=== PATIENT | male | born 1985 | race Caucasian/White ===

== ENCOUNTER 2023-04-08 11:55 | Emergency (ER) | payer OTHER, SELFPAY ==
[2023-04-08 11:57] VITALS: BP 144/94; PULSE 61; RESP 18; TEMP 36.8; O2SAT 96; BMI 39.5
--- NOTE | 2023-04-08 12:33 | ED.UPPEXIN1 ---
HPI - Extremity Injury (Upper) General Chief Complaint: Extremity Injury, Upper Stated Complaint: POSSIBLE TEAR IN L BICEP Time Seen by Provider: 04/08/23 12:06 Source: patient Mode of arrival: walk-in Limitations: no limitations History of Present Illness HPI narrative: patient tried to catch a 1200lb toolbox as it fell and injured the left biceps. He was concerned about possible biceps tear. He has pain along the distal left biceps near the insertion at the radius along the biceps tendon. Related Data Home Medications Medication Instructions Recorded Confirmed amlodipine 5 mg tablet 5 mg PO DAILY 04/08/23 04/08/23 Allergies Allergy/AdvReac Type Severity Reaction Status Date / Time terbinafine [From Lamisil] Allergy Intermediate Verified 04/08/23 12:01 Exam Narrative Exam Narrative: Nurses notes and vital signs reviewed and patient is not hypoxic. General: Well-appearing and in no apparent distress. Skin: Warm, dry, no pallor noted. No rash. Cardiovascular: normal peripheral perfusion Respiratory: No accessory muscle use or respiratory distress. Musculoskeletal: tenderness along the distal/insertional left biceps tendon and along the distal biceps muscles. Left shoulder, elbow and forearm/wrist with normal ROM, no upper extremity edema/swelling and no deformity suggest complete tendon rupture. Distal Left UE exam is normal. Neurological: A&O x4. No cranial nerve dysfunction observed. No truncal ataxia. Moves all extremities. Sensation intact. Psychiatric: Cooperative and interactive. Normal mood and affect. Constitutional Vital Signs, click to edit/add: Last Vital Signs Temp 98.2 F 04/08/23 11:57 Pulse 61 04/08/23 11:57 Resp 18 04/08/23 11:57 BP 144/94 H 04/08/23 11:57 Pulse Ox 96 04/08/23 11:57 O2 Del Method Room Air 04/08/23 11:57 Course Vital Signs Vital signs: Vital Signs Temperature 98.2 F 04/08/23 11:57 Pulse Rate 61 04/08/23 11:57 Respiratory Rate 18 04/08/23 11:57 Blood Pressure 144/94 H 04/08/23 11:57 Pulse Oximetry 96 04/08/23 11:57 Oxygen Delivery Method Room Air 04/08/23 11:57 Temperature 98.2 F 04/08/23 11:57 Pulse Rate 61 04/08/23 11:57 Respiratory Rate 18 04/08/23 11:57 Blood Pressure 144/94 H 04/08/23 11:57 Pulse Oximetry 96 04/08/23 11:57 Oxygen Delivery Method Room Air 04/08/23 11:57 MDM - Extremity Injury (Upper) MDM Narrative Medical decision making narrative: exam consistent with injury to the left insertional biceps tendon but not complete rupture. Patient counseled about NSAID use, avoidance of lifting with left biceps and follow up with ortho if the pain persists. Discharge Plan Discharge Chief Complaint: Extremity Injury, Upper Clinical Impression: Biceps tendinitis Patient Disposition: Home, Self-Care Time of Disposition Decision: 12:32 Prescriptions / Home Meds: No Action amlodipine 5 mg tablet 5 mg PO DAILY Instructions: Muscle Strain (ED), Tendinitis (ED) Stand Alone Forms: Portal Instructions Referrals: BRANDI KNIGHT [Primary Care Provider] - 1 week Rick Ellis MD [Physician] - 1 week
== END 2023-04-08 12:51 | disposition home or self-care (01) ==
PROVIDERS: Emergency Provider Emergency Medicine; PCP Family Medicine
DX: M75.22 Bicipital tendinitis, left shoulder (principal)
CPT/HCPCS: 99282